=== PATIENT | male | born 1945 | race Caucasian/White ===

== ENCOUNTER → 2024-02-28 | Outpatient (CLI) | payer MEDICARE, MEDICAID ==
[~2024-02-28] MED LIST: ACET325C5 PO; DORZ2SOL4; FLOM0.4C39 PO; LATANOPROST; METF500T13; MIRT-10; OMEP-173; THIO1CAP
== END ==
LOC: M CARPUL 07:50
PROVIDERS: ATTEND Internal Medicine Hematology & Oncology
DX: D72.829 Elevated white blood cell count, unspecified (principal); D64.9 Anemia, unspecified; D75.839 Thrombocytosis, unspecified; I27.20 Pulmonary hypertension, unspecified; I36.1 Nonrheumatic tricuspid (valve) insufficiency; I37.1 Nonrheumatic pulmonary valve insufficiency

== ENCOUNTER → 2024-02-28 | Outpatient (CLI) | payer MEDICARE, MEDICAID ==
[2024-02-28 09:15] VITALS: TEMP 97
[2024-02-28 10:06] LABS: APPEARANCE, BODY FLUID CLEAR (CLEAR); PLEURAL FL COLOR YELLOW (COLORLESS); SOURCE, BODY FLUID PLEURAL
[2024-02-28 10:12] LABS: PH BODY FLUID 7.748 UNITS (NOT ESTABLISHED); SOURCE, BODY FLUID pH PLEURAL
[2024-02-28 10:27] LABS: SOURCE, BODY FLUID GLUCOSE PLEURAL
[2024-02-28 10:28] LABS: LDH, BODY FLUID 44 U/L (NOT ESTABLISHED); SOURCE, BODY FLUID LDH PLEURAL
[2024-02-28 10:40] LABS: SOURCE, BODY FLUID TOT PROTEIN PLEURAL; TOTAL PROTEIN, BODY FLUID 2.3 G/DL (NOT ESTABLISHED)
[2024-02-28 11:45] VITALS: BP 107/62; O2SAT 96
== END ==
LOC: M IRPRO 07:49
PROVIDERS: ATTEND Internal Medicine Hematology & Oncology
DX: J90 Pleural effusion, not elsewhere classified (principal); D64.9 Anemia, unspecified; D75.839 Thrombocytosis, unspecified; D72.829 Elevated white blood cell count, unspecified